=== PATIENT | male | born 1965 | race African-American/Black ===

== ENCOUNTER 2024-01-28 20:11 | Inpatient (IN) | payer OTHER ==
[2024-01-28 20:56] VITALS: BMI 20.9
[2024-01-28] MEDS ORDERED: SIMETHICONE 80 MG TAB.CHEW (FP) PO PRN (21:31)
[2024-01-28] MEDS ORDERED: POLYETHYLENE GLYCOL (HEALTHYLAX) 3350 17 GM PACKET PO PRN (21:35)
[2024-01-28] MEDS ORDERED: BENZONATATE 200 MG CAPSULE PO PRN (21:35)
[2024-01-28] MEDS ORDERED: ACETAMINOPHEN 325 MG TABLET (FP) PO PRN (21:35)
[2024-01-28] MEDS ORDERED: IBUPROFEN 400 MG TABLET (FP) PO PRN (21:35)
[2024-01-28] MEDS ORDERED: P-EPHED 60MG/TRIPROLIDI 2.5MG TABLET PO PRN (21:35)
[2024-01-28] MEDS ORDERED: guaiFENesin 600 MG TABLET.ER (FP) PO PRN (21:35)
[2024-01-28] MEDS ORDERED: NICOTINE POLACRILEX 2 MG GUM BUC PRN (21:35)
[2024-01-28] MEDS ORDERED: LOPERAMIDE HCL 2 MG CAPSULE PO PRN (21:35)
[2024-01-28] MEDS ORDERED: NICOTINE POLACRILEX 2 MG LOZENGE BC PRN (21:35)
[2024-01-28] MEDS ORDERED: MAGNESIUM HYDROX 2400MG/30ML ORAL SUSPENSION 30 ML CUP PO PRN (21:35)
[2024-01-28] MEDS ORDERED: DICYCLOMINE HCL 10 MG CAPSULE PO PRN (21:35)
[2024-01-28] MEDS ORDERED: NALOXONE (NARCAN) HCL 4 MG/0.1 ML SPRAY NS PRN (21:35)
[2024-01-28] MEDS ORDERED: BENZOCAINE/MENTHOL (CHLORASEPTIC ) LOZENGE MM PRN (21:35)
[2024-01-28] MEDS ORDERED: ONDANSETRON *ODT* 4 MG TABLET ONE (22:09)
[2024-01-28] MEDS: ONDANSETRON *ODT* 4 MG TABLET SL PRN (22:11)
[2024-01-28] MEDS ORDERED: diazePAM 5 MG TABLET ONE (23:09)
[2024-01-28] MEDS ORDERED: MELATONIN 5 MG TABLETS ONE (23:09)
[2024-01-28] MEDS: THIAMINE 100 MG TABLET PO SCH (23:48)
[2024-01-28] MEDS: MELATONIN 5 MG TABLETS PO SCH (23:48)
[2024-01-28] MEDS: diazePAM 5 MG TABLET PO SCH (23:49)
[2024-01-28] MEDS: PANTOPRAZOLE 20 MG TABLET PO ONE (23:51)
[2024-01-29] MEDS: MAG HYDROX/AL HYDROX/SIMETH 30 ML UNIT-DOSE CUP PO PRN (07:45)
[2024-01-29] MEDS ORDERED: methaDONE HCL 10 MG TABLET PO PRN (08:43)
[2024-01-29] MEDS: PRENATAL VITAMINS W/ FOLIC ACID TABLET (FP) PO SCH (09:44)
[2024-01-29] MEDS: methaDONE HCL 10 MG TABLET PO ONE (09:47)
[2024-01-29] MEDS ORDERED: methaDONE 40 MG, methaDONE 10 MG PO ONE (10:00)
[2024-01-29] MEDS: BISMUTH SUBSALICYLATE 524 MG/30 ML PO PRN (11:32)
[2024-01-29 12:51] LABS: HEMATOCRIT 29.5 % (35.4-49); HEMOGLOBIN 9.7 GM/dL (11.7-16.9); MCH 28.5 pg (25.7-33.7); MCHC 32.8 g/dl (32.0-35.9); MEAN PLT VOLUME 7.1 fl (7.5-11.1); PLATELET COUNT 390 10^3/uL (134-434); RBC 3.39 M/mm3 (4.00-5.60); RDW 14.7 % (11.9-15.9); WHITE BLOOD COUNT 7.2 K/mm3 (4.0-10.0)
[2024-01-29 12:52] LABS: CHLORIDE 109 mmol/L (98-107); POTASSIUM 4.1 mmol/L (3.5-5.1); SODIUM 143 mmol/L (136-145)
[2024-01-29 12:54] LABS: BLOOD UREA NITROGEN 20.7 mg/dL (7-18); CALCIUM 8.6 mg/dL (8.5-10.1)
[2024-01-29 12:55] LABS: ALBUMIN 2.7 g/dl (3.4-5.0); ANION GAP 3 mmol/L (4-13); CO2 30 mmol/L (21-32); GLUCOSE,RANDOM 117 mg/dL (74-106)
[2024-01-29 12:57] LABS: SGPT/ALT 24 U/L (13-61)
[2024-01-29 12:58] LABS: CREATININE 0.7 mg/dL (0.55-1.3)
[2024-01-29 12:59] LABS: BILIRUBIN,TOTAL 0.2 mg/dL (0.2-1); TOT PROT 5.7 g/dl (6.4-8.2)
[2024-01-29 13:00] LABS: ALK PHOS 97 U/L (45-117); SGOT/AST 25 U/L (15-37)
[2024-01-29] MEDS: hydrOXYzine PAMOATE 25 MG CAPSULE (FP) PO PRN (13:42)
[2024-01-29] MEDS: METHOCARBAMOL 500 MG TABLET PO PRN (13:42)
[2024-01-29] MEDS: IBUPROFEN 600 MG TABLET (FP) PO PRN (13:42)
[2024-01-29] MEDS: diazePAM 5 MG TABLET PO PRN (14:44)
[2024-01-29] MEDS: methaDONE HCL 10 MG TABLET PO PRN (20:07)
[2024-01-29] MEDS: SUVOREXANT 10 MG TABLET PO PRN (22:30)
[2024-01-30] MEDS: diazePAM 5 MG TABLET PO SCH (05:34)
[2024-01-30] MEDS: methaDONE 40 MG, methaDONE 10 MG PO ONE (09:47)
[2024-01-31] MEDS ORDERED: cloNIDine HCL 0.1 MG TABLET PO PRN
[2024-01-31] MEDS: diazePAM 5 MG TABLET PO SCH (05:49)
[2024-01-31] MEDS: NALOXONE (NYS OPIOID OVERDOSE PROGRAM) 4 MG/0.1 ML SPRAY NS SCH (08:56)
[2024-01-31] MEDS: methaDONE 40 MG, methaDONE 20 MG PO ONE (09:15)
[2024-01-31 11:48] VITALS: BP 133/70; PULSE 62; RESP 17; TEMP 98
[2024-02-01] MEDS ORDERED: diazePAM 5 MG TABLET PO ONE (06:00)
[2024-02-01] MEDS ORDERED: methaDONE 40 MG, methaDONE 30 MG PO ONE (10:00)
== END 2024-01-31 09:45 | disposition home or self-care (01) | DRG 773 ==
LOC: YASAS 20:11 → Y6N 22:37
PROVIDERS: ADMIT Allergy & Immunology; ATTEND Surgery
PROC: HZ2ZZZZ Detoxification Services for Substance Abuse Treatment (ICD-10-PCS; principal; 2024-01-28)
DX: F10.230 Alcohol dependence with withdrawal, uncomplicated (principal); F11.20 Opioid dependence, uncomplicated; F17.210 Nicotine dependence, cigarettes, uncomplicated; F19.282 Other psychoactive substance dependence with psychoactive substance-induced sleep disorder; F19.24 Other psychoactive substance dependence with psychoactive substance-induced mood disorder; K21.9 Gastro-esophageal reflux disease without esophagitis; M17.0 Bilateral primary osteoarthritis of knee; Z59.00 Homelessness unspecified
CPT/HCPCS: 36415; 80053; 80305; 80307; 85027; 86780; 93005; 93010; Q0162

== ENCOUNTER 2024-02-20 17:34 | Inpatient (IN) | payer OTHER ==
[2024-02-20 17:49] VITALS: BMI 18.8
[2024-02-20] MEDS ORDERED: ONDANSETRON *ODT* 4 MG TABLET SL PRN (17:57)
[2024-02-20] MEDS ORDERED: NICOTINE POLACRILEX 2 MG LOZENGE BC PRN (17:57)
[2024-02-20] MEDS ORDERED: IBUPROFEN 400 MG TABLET (FP) PO PRN (17:57)
[2024-02-20] MEDS ORDERED: DICYCLOMINE HCL 10 MG CAPSULE PO PRN (17:57)
[2024-02-20] MEDS ORDERED: POLYETHYLENE GLYCOL (HEALTHYLAX) 3350 17 GM PACKET PO PRN (17:57)
[2024-02-20] MEDS ORDERED: NICOTINE POLACRILEX 2 MG GUM BUC PRN (17:57)
[2024-02-20] MEDS ORDERED: MAGNESIUM HYDROX 2400MG/30ML ORAL SUSPENSION 30 ML CUP PO PRN (17:57)
[2024-02-20] MEDS ORDERED: guaiFENesin 600 MG TABLET.ER (FP) PO PRN (17:57)
[2024-02-20] MEDS ORDERED: NALOXONE (NARCAN) HCL 4 MG/0.1 ML SPRAY NS PRN (17:57)
[2024-02-20] MEDS ORDERED: ACETAMINOPHEN 325 MG TABLET (FP) PO PRN (17:57)
[2024-02-20] MEDS ORDERED: LOPERAMIDE HCL 2 MG CAPSULE PO PRN (17:57)
[2024-02-20] MEDS ORDERED: BENZONATATE 200 MG CAPSULE PO PRN (17:57)
[2024-02-20] MEDS ORDERED: BENZOCAINE/MENTHOL (CHLORASEPTIC ) LOZENGE MM PRN (17:57)
[2024-02-20] MEDS: THIAMINE 100 MG TABLET PO SCH (22:57)
[2024-02-20] MEDS: MELATONIN 5 MG TABLETS PO SCH (22:58)
[2024-02-21] MEDS: PANTOPRAZOLE 20 MG TABLET PO SCH (07:40)
[2024-02-21] MEDS: PRENATAL VITAMINS W/ FOLIC ACID TABLET (FP) PO SCH (10:22)
[2024-02-21] MEDS: diazePAM 5 MG TABLET PO SCH (10:22)
[2024-02-21] MEDS: methaDONE 40 MG, methaDONE 20 MG PO SCH (10:23)
[2024-02-21] MEDS: METHOCARBAMOL 500 MG TABLET PO PRN (10:27)
[2024-02-21] MEDS: methaDONE HCL 40 MG DISPERSABLE TABLET PO SCH (10:36)
[2024-02-21] MEDS: DOCUSATE SODIUM 100 MG CAPSULE (FP) PO PRN (14:15)
[2024-02-21] MEDS: QUEtiapine FUMARATE 50 MG TABLET PO SCH (21:03)
[2024-02-21] MEDS ORDERED: QUEtiapine FUMARATE 100 MG TABLET (FP) PO SCH (22:00)
[2024-02-22] MEDS: MAG HYDROX/AL HYDROX/SIMETH 30 ML UNIT-DOSE CUP PO PRN (17:06)
[2024-02-22] MEDS: BISMUTH SUBSALICYLATE 524 MG/30 ML PO PRN (20:16)
[2024-02-23] MEDS: diazePAM 5 MG TABLET PO SCH (02:20)
[2024-02-23 10:05] LABS: HEMATOCRIT 33.1 % (35.4-49); HEMOGLOBIN 11.6 GM/dL (11.7-16.9); MEAN CELL VOLUME 85.7 fl (80-96); MEAN PLT VOLUME 6.7 fl (7.5-11.1); PLATELET COUNT 456 10^3/uL (134-434); RBC 3.86 M/mm3 (4.00-5.60); RDW 15.1 % (11.9-15.9); WHITE BLOOD COUNT 8.1 K/mm3 (4.0-10.0)
[2024-02-23 10:06] LABS: POTASSIUM 4.1 mmol/L (3.5-5.1)
[2024-02-23 10:11] LABS: CALCIUM 8.6 mg/dL (8.5-10.1)
[2024-02-23 10:12] LABS: BLOOD UREA NITROGEN 13.6 mg/dL (7-18)
[2024-02-23 10:16] LABS: CREATININE 0.7 mg/dL (0.55-1.3)
[2024-02-23 10:17] LABS: BILIRUBIN,TOTAL 0.2 mg/dL (0.2-1); TOT PROT 6.2 g/dl (6.4-8.2)
[2024-02-23] MEDS: diazePAM 5 MG TABLET PO PRN (15:22)
[2024-02-23] MEDS: PANTOPRAZOLE 20 MG TABLET PO SCH (17:25)
[2024-02-24] MEDS: diazePAM 5 MG TABLET PO SCH (05:48)
[2024-02-24 06:35] VITALS: PULSE 60
[2024-02-24] MEDS ORDERED: methaDONE HCL 10 MG TABLET PO SCH (08:45)
[2024-02-24] MEDS: methaDONE 40 MG, methaDONE 20 MG PO SCH (10:36)
[2024-02-24] MEDS: DOCUSATE SODIUM 100 MG CAPSULE (FP) PO PRN (16:51)
[2024-02-24 16:59] VITALS: RESP 16
[2024-02-25] MEDS: diazePAM 5 MG TABLET PO ONE (05:35)
[2024-02-25] MEDS ORDERED: NALOXONE (NYS OPIOID OVERDOSE PROGRAM) 4 MG/0.1 ML SPRAY NS PRN (08:00)
[2024-02-25 10:18] VITALS: BP 117/63; TEMP 98.4
== END 2024-02-25 11:10 | disposition home or self-care (01) | DRG 773 ==
LOC: YASAS 17:34 → Y3N 18:35
PROVIDERS: ADMIT Allergy & Immunology; ATTEND Surgery
PROC: HZ2ZZZZ Detoxification Services for Substance Abuse Treatment (ICD-10-PCS; principal; 2024-02-20)
DX: F10.230 Alcohol dependence with withdrawal, uncomplicated (principal); F11.20 Opioid dependence, uncomplicated; F14.20 Cocaine dependence, uncomplicated; F12.20 Cannabis dependence, uncomplicated; F17.210 Nicotine dependence, cigarettes, uncomplicated; F19.24 Other psychoactive substance dependence with psychoactive substance-induced mood disorder; F32.A Depression, unspecified; G47.00 Insomnia, unspecified; M17.0 Bilateral primary osteoarthritis of knee; G89.29 Other chronic pain; Z99.89 Dependence on other enabling machines and devices
CPT/HCPCS: 36415; 80053; 80307; 85027

== ENCOUNTER 2024-03-12 11:51 | Inpatient (IN) | payer OTHER ==
[2024-03-12 12:16] VITALS: BMI 18.4
[2024-03-12] MEDS ORDERED: guaiFENesin 600 MG TABLET.ER (FP) PO PRN (12:18)
[2024-03-12] MEDS ORDERED: BENZOCAINE/MENTHOL (CHLORASEPTIC ) LOZENGE MM PRN (12:18)
[2024-03-12] MEDS ORDERED: IBUPROFEN 600 MG TABLET (FP) PO PRN (12:18)
[2024-03-12] MEDS ORDERED: NALOXONE (NARCAN) HCL 4 MG/0.1 ML SPRAY NS PRN (12:18)
[2024-03-12] MEDS ORDERED: LOPERAMIDE HCL 2 MG CAPSULE PO PRN (12:18)
[2024-03-12] MEDS ORDERED: ONDANSETRON *ODT* 4 MG TABLET SL PRN (12:18)
[2024-03-12] MEDS ORDERED: ACETAMINOPHEN 325 MG TABLET (FP) PO PRN (12:18)
[2024-03-12] MEDS ORDERED: BISMUTH SUBSALICYLATE 524 MG/30 ML PO PRN (12:18)
[2024-03-12] MEDS ORDERED: POLYETHYLENE GLYCOL (HEALTHYLAX) 3350 17 GM PACKET PO PRN (12:18)
[2024-03-12] MEDS ORDERED: IBUPROFEN 400 MG TABLET (FP) PO PRN (12:18)
[2024-03-12] MEDS ORDERED: BENZONATATE 200 MG CAPSULE PO PRN (12:18)
[2024-03-12] MEDS ORDERED: MAGNESIUM HYDROX 2400MG/30ML ORAL SUSPENSION 30 ML CUP PO PRN (12:18)
[2024-03-12] MEDS ORDERED: methaDONE HCL 10 MG TABLET PO ONE (12:41)
[2024-03-12] MEDS ORDERED: methaDONE 40 MG, methaDONE 10 MG PO ONE (13:00)
[2024-03-12] MEDS ORDERED: methaDONE HCL 10 MG TABLET ONE (13:12)
[2024-03-12] MEDS ORDERED: PRENATAL VITAMINS W/ FOLIC ACID TABLET (FP) PO ONE (13:12)
[2024-03-12] MEDS: PRENATAL VITAMINS W/ FOLIC ACID TABLET (FP) PO SCH (13:15)
[2024-03-12] MEDS: methaDONE 40 MG, methaDONE 10 MG PO ONE (13:16)
[2024-03-12] MEDS: NICOTINE 14 MG/24 HOURS TOPICAL PATCH TD SCH (13:16)
[2024-03-12] MEDS: methaDONE HCL 10 MG TABLET PO ONE (13:39)
[2024-03-12] MEDS: chlordiazePOXIDE HCL 25 MG CAPSULE PO PRN (13:58)
[2024-03-12] MEDS: cloNIDine HCL 0.1 MG TABLET PO SCH (14:02)
[2024-03-12] MEDS: chlordiazePOXIDE HCL 25 MG CAPSULE PO SCH (17:08)
[2024-03-12] MEDS: METHOCARBAMOL 500 MG TABLET PO PRN (19:29)
[2024-03-12] MEDS: THIAMINE 100 MG TABLET PO SCH (22:01)
[2024-03-12] MEDS: GABAPENTIN 300 MG CAPSULE PO SCH (22:01)
[2024-03-12] MEDS: DIVALPROEX SODIUM 500 MG TABLET E.C. PO SCH (22:01)
[2024-03-12] MEDS: CLOTRIMAZOLE 1% CREAM TP SCH (22:02)
[2024-03-12] MEDS: MELATONIN 5 MG TABLETS PO SCH (22:06)
[2024-03-12] MEDS: TOLNAFTATE 1% POWDER 45 GM POW TP SCH (23:13)
[2024-03-13] MEDS: methaDONE HCL 10 MG TABLET PO ONE (09:36)
[2024-03-13] MEDS: PANTOPRAZOLE 40 MG TABLET PO SCH (09:37)
[2024-03-13] MEDS ORDERED: methaDONE HCL 10 MG TABLET PO SCH (10:00)
[2024-03-13] MEDS ORDERED: DOCUSATE SODIUM 100 MG CAPSULE (FP) PO PRN (10:14)
[2024-03-13] MEDS: FAMOTIDINE 20 MG TABLET PO SCH (10:43)
[2024-03-13] MEDS: diazePAM 5 MG TABLET PO ONE (10:44)
[2024-03-13] MEDS: methaDONE 40 MG, methaDONE 10 MG PO SCH (10:44)
[2024-03-13 14:36] LABS: HEMATOCRIT 35.2 % (35.4-49); HEMOGLOBIN 11.3 GM/dL (11.7-16.9); MCH 28.4 pg (25.7-33.7); MEAN CELL VOLUME 88.8 fl (80-96); MEAN PLT VOLUME 6.9 fl (7.5-11.1); PLATELET COUNT 516 10^3/uL (134-434); RBC 3.96 M/mm3 (4.00-5.60); RDW 15.3 % (11.9-15.9); WHITE BLOOD COUNT 7.1 K/mm3 (4.0-10.0)
[2024-03-13 15:44] LABS: POTASSIUM 4.1 mmol/L (3.5-5.1)
[2024-03-13 15:49] LABS: CALCIUM 9.1 mg/dL (8.5-10.1)
[2024-03-13 15:50] LABS: BLOOD UREA NITROGEN 17.2 mg/dL (7-18)
[2024-03-13 15:53] LABS: CREATININE 0.7 mg/dL (0.55-1.3)
[2024-03-13 15:54] LABS: BILIRUBIN,TOTAL 0.2 mg/dL (0.2-1); TOT PROT 6.4 g/dl (6.4-8.2)
[2024-03-13] MEDS: diazePAM 5 MG TABLET PO SCH (17:02)
[2024-03-13] MEDS: MAG HYDROX/AL HYDROX/SIMETH 30 ML UNIT-DOSE CUP PO PRN (18:55)
[2024-03-13] MEDS: DICYCLOMINE HCL 10 MG CAPSULE PO PRN (18:56)
[2024-03-13] MEDS: diazePAM 5 MG TABLET PO PRN (19:45)
[2024-03-13] MEDS: TRIMETHOBENZAMIDE HCL 200MG/2ML INJ IM ONE (20:31)
[2024-03-13] MEDS: DOCUSATE SODIUM 100 MG CAPSULE (FP) PO SCH (22:12)
[2024-03-13] MEDS: SUVOREXANT 15 MG TABLET PO PRN (22:13)
[2024-03-14] MEDS: cloNIDine HCL 0.1 MG TABLET PO PRN (03:20)
[2024-03-14] MEDS ORDERED: chlordiazePOXIDE HCL 25 MG CAPSULE PO SCH (05:00)
[2024-03-14] MEDS: OSELTAMIVIR PHOSPHATE 75 MG CAPSULE PO SCH (10:10)
[2024-03-15] MEDS ORDERED: chlordiazePOXIDE HCL 10 MG CAPSULE PO PRN
[2024-03-15] MEDS ORDERED: chlordiazePOXIDE HCL 10 MG CAPSULE PO SCH (05:00)
[2024-03-15] MEDS: diazePAM 5 MG TABLET PO SCH (06:06)
[2024-03-15] MEDS: methaDONE HCL 10 MG TABLET PO ONE (09:28)
[2024-03-15] MEDS: FAMOTIDINE 20 MG TABLET PO SCH (21:15)
[2024-03-16] MEDS ORDERED: chlordiazePOXIDE HCL 10 MG CAPSULE PO SCH (05:00)
[2024-03-16] MEDS: diazePAM 5 MG TABLET PO SCH (05:04)
[2024-03-16] MEDS: methaDONE HCL 10 MG TABLET PO ONE (10:41)
[2024-03-16] MEDS: hydrOXYzine PAMOATE 25 MG CAPSULE (FP) PO PRN (11:19)
[2024-03-16 21:03] VITALS: RESP 16
[2024-03-16] MEDS: SUVOREXANT 15 MG TABLET PO PRN (22:50)
[2024-03-17] MEDS ORDERED: chlordiazePOXIDE HCL 10 MG CAPSULE PO ONE (05:00)
[2024-03-17] MEDS: diazePAM 5 MG TABLET PO ONE (05:08)
[2024-03-17 09:14] VITALS: BP 131/71; PULSE 58; TEMP 98.6
[2024-03-17] MEDS: methaDONE HCL 10 MG TABLET PO ONE (09:19)
[2024-03-17] MEDS: NALOXONE (NYS OPIOID OVERDOSE PROGRAM) 4 MG/0.1 ML SPRAY NS SCH ×2 (09:23→09:28)
[2024-03-17] MEDS ORDERED: methaDONE HCL 10 MG TABLET PO ONE (10:00)
== END 2024-03-17 10:27 | disposition home or self-care (01) | DRG 773 ==
LOC: YASAS 11:51 → Y6N 13:08 → Y3N 03-14 06:56
PROVIDERS: ADMIT Allergy & Immunology; ATTEND Allergy & Immunology
PROC: HZ2ZZZZ Detoxification Services for Substance Abuse Treatment (ICD-10-PCS; principal; 2024-03-12)
DX: F11.23 Opioid dependence with withdrawal (principal); F10.230 Alcohol dependence with withdrawal, uncomplicated; F14.20 Cocaine dependence, uncomplicated; F13.20 Sedative, hypnotic or anxiolytic dependence, uncomplicated; F17.210 Nicotine dependence, cigarettes, uncomplicated; K21.9 Gastro-esophageal reflux disease without esophagitis; M17.0 Bilateral primary osteoarthritis of knee; Z20.828 Contact with and (suspected) exposure to other viral communicable diseases
CPT/HCPCS: 0241U-QW; 36415; 80053; 80305; 80307; 85027; 86780; 93005; 93010